=== PATIENT | male | born 1945 | race American Indian/Alaskan Native ===

== ENCOUNTER 2018-06-02 19:27 | Emergency (ER) | payer MEDICARE ==
--- NOTE | 2018-06-02 21:39 | XRay Report ---
FINAL REPORT PROCEDURE: XR CHEST ROUTINE 2V TECHNIQUE: PA and lateral chest radiographs were obtained. CPT 66651 HISTORY: Shortness of breath COMPARISON: No prior studies are available for comparison. FINDINGS: Heart: Normal. Mediastinum/Vessels: Normal. Lungs/Pleural space: There are no infiltrates, effusions or pneumothoraces. There is a 7 millimeter nodule at the left lung base which could be a calcified granuloma.. Bony thorax: No acute osseous abnormality. Other: IMPRESSION: There is no acute cardiopulmonary abnormality..
[2018-06-02 22:13] LABS: Basophils % (Auto) 0.8 % (0.0-1.8); Eosinophils # (Auto) 0.1 K/mm3 (0.0-0.4); Eosinophils % (Auto) 2.4 % (0.0-4.3); Hematocrit 40.7 % (35.5-45.6); Hemoglobin 14.3 gm/dl (11.8-15.2); Lymphocytes # (Auto) 2.1 K/mm3 (1.2-5.4); Lymphocytes % (Auto) 40.4 % (13.4-35.0); Mean Corpuscular HGB Conc 35 % (32-34); Mean Corpuscular Hemoglobin 32 pg (28-32); Mean Corpuscular Volume 91 fl (84-94); Monocytes # (Auto) 0.4 K/mm3 (0.0-0.8); Monocytes % (Auto) 8.5 % (0.0-7.3); Platelet Count 197 K/mm3 (140-440); Red Blood Count 4.47 M/mm3 (3.65-5.03); Red Cell Distribution Width 13.5 % (13.2-15.2)
[2018-06-02 22:32] LABS: BUN/Creatinine Ratio 16; Blood Urea Nitrogen 16 mg/dL (9-20); Calcium 9.3 mg/dL (8.4-10.2); Hemolysis Index 19
--- NOTE | 2018-06-02 23:20 | Emergency Department Report ---
ED General Adult HPI - General Chief complaint: Dyspnea/Respdistress Stated complaint: SOB Time Seen by Provider: 06/02/18 23:07 Source: patient, RN notes reviewed Mode of arrival: Ambulatory Limitations: No Limitations - History of Present Illness Initial comments: Primary care DrFrancisco: Dr. Miguel This is a 73-year-old gentleman who is not known to this provider previously. He denies chronic medical conditions. He presents to the ER with a complaint of painless intermittent shortness of breath. It happens when he lays flat. It is not worse with physical exertion. There is no vomiting, chest pain or diaphoresis. As per his sleeping partner, on Wednesday, the patient appeared cool and clammy, but neither the patient nor his bed partner noticed sweats per se. The patient currently denies headache, neck pain, chest pain, abdominal pain, shortness of breath. Patient sleeps on 2 pillows chronically, and does not endorse increased orthopnea. His symptoms only happen when he sleeps at night. As per his /bed partner, he sometimes stops breathing at night, and patient endorses feeling sleepy intermittently during the day. bed partner also endorses that the patient occasionally has restless legs. -: Gradual, days(s) Radiation: non-radiation Consistency: intermittent Improves with: rest Worsens with: other Associated Symptoms: denies other symptoms, shortness of breath - Related Data Allergies Allergy/AdvReac Type Severity Reaction Status Date / Time No Known Allergies Allergy Unverified 06/02/18 19:49 ED Review of Systems ROS: Stated complaint: SOB Other details as noted in HPI Comment: All other systems reviewed and negative Respiratory: shortness of breath Cardiovascular: denies: chest pain ED Past Medical Hx - Surgical History Additional Surgical History: hernia repairs - Social History Smoking Status: Never Smoker Substance Use Type: None ED Physical Exam - General Limitations: No Limitations General appearance: alert, in no apparent distress - Head Head exam: Present: atraumatic, normocephalic - Eye Eye exam: Present: normal appearance, EOMI. Absent: nystagmus - ENT ENT exam: Present: normal exam, normal orophraynx, mucous membranes moist, normal external ear exam - Neck Neck exam: Present: normal inspection (there is no jugular venous distention), full ROM. Absent: tenderness, meningismus - Respiratory Respiratory exam: Present: normal lung sounds bilaterally. Absent: respiratory distress, wheezes, rales, rhonchi, stridor, chest wall tenderness, accessory muscle use, decreased breath sounds, prolonged expiratory - Cardiovascular Cardiovascular Exam: Present: regular rate, normal rhythm, normal heart sounds. Absent: systolic murmur, diastolic murmur, rubs, gallop - GI/Abdominal GI/Abdominal exam: Present: soft, normal bowel sounds. Absent: distended, tenderness, guarding, rebound, rigid, pulsatile mass - Rectal Rectal exam: Present: deferred - Extremities Exam Extremities exam: Present: normal inspection, full ROM, normal capillary refill , other (2+ pulses noted in the bilateral upper, lower extremities. Compartments soft. No long bony tenderness. The pelvis is stable.). Absent: tenderness, pedal edema, joint swelling, calf tenderness - Back Exam Back exam: Present: normal inspection, full ROM. Absent: tenderness, CVA tenderness (R), paraspinal tenderness, vertebral tenderness - Neurological Exam Neurological exam: Present: alert, oriented X3, CN II-XII intact, normal gait, other (Extraocular movements intact. Tongue midline. No facial droop. Facial sensation intact to light touch in the V1, V2, V3 distribution bilaterally. 5 and 5 strength in 4 extremities.. Sensation is intact to light touch in 4 extremities.). Absent: motor sensory deficit - Psychiatric Psychiatric exam: Present: normal affect, normal mood - Skin Skin exam: Present: warm, dry, intact, normal color. Absent: rash ED Course Vital Signs 06/02/18 06/02/18 19:42 23:25 Temperature 98.8 F 98 F Pulse Rate 82 68 Respiratory 20 19 Rate Blood Pressure 136/93 Blood Pressure 136/100 [Left] O2 Sat by Pulse 100 99 Oximetry ED Medical Decision Making - Lab Data Result diagrams: 06/02/18 20:18 06/02/18 20:18 Vital Signs 06/02/18 06/02/18 19:42 23:25 Temperature 98.8 F 98 F Pulse Rate 82 68 Respiratory 20 19 Rate Blood Pressure 136/93 Blood Pressure 136/100 [Left] O2 Sat by Pulse 100 99 Oximetry Lab Results 06/02/18 06/02/18 Range/Units 20:18 20:18 WBC 5.3 (4.5-11.0) K/mm3 RBC 4.47 (3.65-5.03) M/mm3 Hgb 14.3 (11.8-15.2) gm/dl Hct 40.7 (35.5-45.6) % MCV 91 (84-94) fl MCH 32 (28-32) pg MCHC 35 H (32-34) % RDW 13.5 (13.2-15.2) % Plt Count 197 (140-440) K/mm3 Lymph % (Auto) 40.4 H (13.4-35.0) % [place] % (Auto) 8.5 H (0.0-7.3) % Eos % (Auto) 2.4 (0.0-4.3) % Baso % (Auto) 0.8 (0.0-1.8) % Lymph # 2.1 (1.2-5.4) K/mm3 [place] # 0.4 (0.0-0.8) K/mm3 Eos # 0.1 (0.0-0.4) K/mm3 Baso # 0.0 (0.0-0.1) K/mm3 Seg Neutrophils % 47.9 (40.0-70.0) % Seg Neutrophils # 2.5 (1.8-7.7) K/mm3 Sodium 136 L (137-145) mmol/L Potassium 4.3 (3.6-5.0) mmol/L Chloride 96.4 L (98-107) mmol/L Carbon Dioxide 26 (22-30) mmol/L Anion Gap 18 mmol/L BUN 16 (9-20) mg/dL Creatinine 1.0 (0.8-1.5) mg/dL Estimated GFR > 60 ml/min BUN/Creatinine Ratio 16 % Glucose 98 (75-100) mg/dL Calcium 9.3 (8.4-10.2) mg/dL Troponin T < 0.010 (0.00-0.029) ng/mL - EKG Data -: EKG Interpreted by Sd EKG shows normal: sinus rhythm Rate: normal - EKG Data When compared to previous EKG there are: previous EKG unavailable 06/03/18 00:06 Sinus, 76 bpm, normal axis, normal intervals, borderline high left ventricular voltage, not a STEMI - Radiology Data Radiology results: report reviewed, image reviewed X-ray of the chest is negative for acute disease - Medical Decision Making Differential diagnosis, including but not limited to: Pneumonia, congestive heart failure, obstructive sleep apnea Assessment and plan: 73-year-old male with painless shortness of breath only when laying flat. Has no pulmonary embolus or DVT risk factors and is low risk by well's criteria. Clinically doubt pneumonia given lack of fever, cough, chest pain, mucus production, normal pulmonary examination and normal x-ray of the chest. Clinically doubt congestive heart failure given lack of rales, rhonchi, lower extremity edema, jugular venous distention and x-ray findings. May have undiagnosed obstructive sleep apnea. Low risk for major adverse cardiac event and low risk by the heart score. Patient is instructed to follow up with outpatient pulmonology for further evaluation for possible obstructive sleep apnea. Can also follow up with outpatient cardiology. This is discussed with patient and family, who agreed to follow-up as an outpatient. Critical care attestation.: If time is entered above; I have spent that time in minutes in the direct care of this critically ill patient, excluding procedure time. ED Disposition Clinical Impression: Dyspnea Disposition: [id number]-01 TO HOME OR SELFCARE Is pt being admited?: No Does the pt Need Aspirin: No Condition: Good Instructions: Snoring (ED) Additional Instructions: Symptoms most likely coming from obstructive sleep apnea. Follow up with a pulmonary doctor/sleep specialist within the next 2 weeks. Addition, patient may follow up with the radiological defense officer for the next 2 weeks as well. Please return to the ER right away with new pain, worsened pain, migration of pain, projectile vomiting, change in mental status, confusion, inability to tolerate liquid feedings. Referrals: LINDA MIGUEL MD [Primary Care Provider] - 3-5 Days POLLY BILLINGSLEY MD [Staff Physician] - 3-5 Days ELLIOT REYNOLDS MD [Staff Physician] - 3-5 Days [facility] [Provider Group] - 3-5 Days [facility] [Provider Group] - 3-5 Days
[2018-06-02 23:26] VITALS: BP 136/100
== END 2018-06-03 00:17 | disposition home or self-care (01) ==
LOC: ED 19:27
DX: R06.02 Shortness of breath (principal)
CPT/HCPCS: 36415; 71046; 80048; 84484; 85025; 93005; 93010